=== PATIENT | female | born 1990 | race African-American/Black ===

== ENCOUNTER 2017-09-14 11:15 | Emergency (ER) | payer BC, OTHER ==
[~2017-09-14 11:15] MED LIST: FERR325T PO; MELO7.5T27 PO; PERI8.6T PO; [UNRECOGNIZED DRUG - OTHER]
--- NOTE | 2017-09-14 12:14 | PD ---
HPI Chief Complaint abdominal cramping Date Seen: Sep 14, 2017 Time Seen: 12:00 Travel History International Travel<30 Days: No Contact w/Intl Traveler<30Days: No Known Affected Area: No History of Present Illness HPI Pt is a 27 yo at 34 weeks and 4 days. EDC 10-22-[address] Graham, otherwise uncomplicated with exception of Fe deficiency anemia. Pt fell on right side from bed. Reporting abdominal cramping. No vaginal bleeding No leaking vaginal leaking. Reports active movements Weeks Gestation: 34 Para: 0 : 1 History Past Medical History Narrative Medical Iron deficiency anemia Obstetric History Obstetric History Primigravida Past Surgical History Surgical History: No Previous Surgery Family History Family History: Negative Social History Alcohol Use: No Tobacco Use: No Substance Abuse: No Allergies-Medications (Allergen,Severity, Reaction): Coded Allergies: amoxicillin (Unverified Allergy, Severe, HIVES, 05/03/17) penicillin G (Unverified Allergy, Severe, HIVES, 05/03/17) Home Meds Active Scripts Ferrous Sulfate (Ferrous Sulfate) 325 Mg Tab, 325 MG PO BID for Nutritional Supplement, #30 TAB 0 Refills Prov:Jocelin Ibarra MD R2 10/26/16 Sennosides-Docusate Sodium (Michelle-Colace) 8.6-50 Mg Tab, 2 TAB PO DAILY for Constipation, #60 TAB 0 Refills Prov:Jocelin Ibarra MD R2 10/26/16 Meloxicam (Meloxicam) 7.5 Mg Tab, 7.5 MG PO DAILY for Arthritis Pain, #30 TAB 0 Refills Prov:Jocelin Ibarra MD R2 10/26/16 Reported Medications [Trinessa Bcp] No Conflict Check 10/16/12 Review of Systems Except as stated in HPI: all other systems reviewed are Neg Physical Exam Narrative GENERAL: Well-nourished, well-developed patient. SKIN: Warm and dry. HEAD: Normocephalic and atraumatic. EYES: No scleral icterus. No injection or drainage. ENT: No nasal drainage noted. Mucous membranes pink. Airway patent. NECK: Supple, trachea midline. No JVD. CARDIOVASCULAR: Regular rate and rhythm without murmurs, gallops, or rubs. RESPIRATORY: Breath sounds equal bilaterally. No accessory muscle use. BREASTS: Bilateral exam showed no masses , no retractions, no nipple discharge. ABDOMEN/GI: Abdomen soft, non-tender, bowel sounds present, no rebound, no guarding No abdominal bruising Gravid to [34] weeks size Fundal Height: [34] GENITOURINARY: Uterine Contractions: [none] FHT's: Category: [1] Baseline: [120s] Reactive: [-] Variability: [moderate] Decels: [none] EXTREMITIES: No cyanosis or edema. BACK: Nontender without obvious deformity. No CVA tenderness. NEUROLOGICAL: Awake and alert. Motor and sensory grossly within normal limits. Five out of 5 muscle strength in all muscle groups. Normal speech. Data Data Vital Signs Reviewed: Yes [facility] Medical Record Reviewed: Yes Plan Abdominal cramping s/p fall. No vaginal bleeding, leaking and no contractions. Active movements Will allow prolonged NST Patient evaluated for 1 hour. Reports feeling better No vaginal bleeding, contractions or leaking. NST Cat1, no contractions noted on TOCO. Diagnosis Diagnosis: Primary Impression: Abdominal cramping affecting Additional Impression: Fall Disposition: 01 DISCHARGE HOME Condition: Good Freeman Nolan MD Sep 14, 2017 12:14
== END 2017-09-14 13:19 | disposition home or self-care (01) ==
LOC: HOBED 11:15
DX: O26.893 Other specified pregnancy related conditions, third trimester (principal); R10.9 Unspecified abdominal pain; Z3A.34 34 weeks gestation of pregnancy
CPT/HCPCS: 59025

== ENCOUNTER 2017-10-21 04:04 | Inpatient (IN) | payer OTHER ==
[2017-10-21] VITALS (9 sets, daily range): BP systolic 103–121; BP diastolic 55–74; PULSE 66–85; RESP 14–20; TEMP 97.7–98.7; O2SAT 98–100
[~2017-10-21] VITALS: Ht 149.9 cm; Wt 72.6 kg
[2017-10-21] MEDS ORDERED: LACTATED RINGER'S 1000 ML INJ 1,000 ML IV ONE ×2 (05:24→12:00)
--- NOTE | 2017-10-21 05:24 | PD ---
HPI Chief Complaint Contractions since 2 AM Date Seen: Oct 21, 2017 Time Seen: 05:20 Travel History International Travel<30 Days: No Contact w/Intl Traveler<30Days: No Known Affected Area: No History of Present Illness HPI 27-year-old at 39 weeks 6 days comes in complaining of contractions since 2 AM. Tractions was accompanied by a small amount of vaginal bleeding that has since resolved. She comes in his contractions have become more frequent and increased in intensity. Patient remembers having a group B strep collected but does not know the results and it is not in her exams. Patient had an ultrasound on Tuesday to ensure that it was a vertex presentation, baby was vertex at that time weighing 8 lbs. 1 oz. Weeks Gestation: 39 (39.6) Para: 0 : 1 History Past Medical History Medical History: Denies Significant Hx Past Surgical History Surgical History: No Previous Surgery Family History Family History: Negative Social History Alcohol Use: No Tobacco Use: No Substance Abuse: No Allergies-Medications (Allergen,Severity, Reaction): Coded Allergies: amoxicillin (Unverified Allergy, Severe, HIVES, 05/03/17) penicillin G (Unverified Allergy, Severe, HIVES, 05/03/17) Home Meds Active Scripts Ferrous Sulfate (Ferrous Sulfate) 325 Mg Tab, 325 MG PO BID for Nutritional Supplement, #30 TAB 0 Refills Prov:Jocelin Ibarra MD R2 10/26/16 Sennosides-Docusate Sodium (Michelle-Colace) 8.6-50 Mg Tab, 2 TAB PO DAILY for Constipation, #60 TAB 0 Refills Prov:Jocelin Ibarra MD R2 10/26/16 Meloxicam (Meloxicam) 7.5 Mg Tab, 7.5 MG PO DAILY for Arthritis Pain, #30 TAB 0 Refills Prov:Jocelin Ibarra MD R2 10/26/16 Reported Medications [Trinessa Bcp] No Conflict Check 10/16/12 Review of Systems Except as stated in HPI: all other systems reviewed are Neg Physical Exam Narrative GENERAL: Well-nourished, well-developed patient. SKIN: Warm and dry. HEAD: Normocephalic and atraumatic. EYES: No scleral icterus. No injection or drainage. ENT: No nasal drainage noted. Mucous membranes pink. Airway patent. NECK: Supple, trachea midline. No JVD. CARDIOVASCULAR: Regular rate and rhythm without murmurs, gallops, or rubs. RESPIRATORY: Breath sounds equal bilaterally. No accessory muscle use. ABDOMEN/GI: Abdomen soft, non-tender, bowel sounds present, no rebound, no guarding Gravid to [-] weeks size 41 Fundal Height: [-] GENITOURINARY: External Genitalia: intact and normal in appearance BUS glands: [-] Normal Cervix: [-] Mid position Dilatation: [-] 3-4 cm external os, 1 cm internal os with the head very high almost overriding the pubic bone Effacement: [-] 50 Station: [-] High Presentation: [-] Vertex Membranes: [intact or ruptured] intact Uterine Contractions: [-] Every 5 minutes FHT's: Category: [-] 1 Baseline: [-] 140 Reactive: [-] Moderate Variability: [-] Moderate Decels: [-] Absent EXTREMITIES: No cyanosis or edema. BACK: Nontender without obvious deformity. No CVA tenderness. NEUROLOGICAL: Awake and alert. Motor and sensory grossly within normal limits. Five out of 5 muscle strength in all muscle groups. Normal speech. Data Data Vital Signs Reviewed: Yes Orders Orders Ob (2e) Additional Admit Info (10/21/17 05:07) [facility] Medical Record Reviewed: Yes Plan 27-year-old who is at 39 weeks 6 days with obvious cephalic pelvic disproportion on exam with the vertex above the symphysis and pelvic contracture. I discussed this with Dr. neri and the patient and section was recommended Diagnosis Diagnosis: Primary Impression: Failure of descent in labor, delivered, current hospitalization Additional Impressions: CPD (cephalo-pelvic disproportion) 39 weeks gestation of Nadiya Wood MD Oct 21, 2017 05:24
[2017-10-21 05:35] LABS: AUTOMATED NEUTROPHIL # 4.4 TH/MM3 (1.8-7.7); BASOPHIL % 0.5 % (0.0-2.0); EOSINOPHIL # 0.1 TH/MM3 (0-0.4); EOSINOPHIL % 0.8 % (0.0-4.0); HEMOGLOBIN 11.1 GM/DL (11.6-15.3); LYMPH % 32.4 % (9.0-44.0); LYMPHOCYTE # 2.4 TH/MM3 (1.0-4.8); MEAN CORPUSCULAR HEMOGLOBIN 24.2 PG (27.0-34.0); MEAN CORPUSCULAR HGB CONC 32.7 % (32.0-36.0); MONO % 8.1 % (0.0-8.0); MONOCYTE # 0.6 TH/MM3 (0-0.9); NEUT % 58.2 % (16.0-70.0); PLATELET COUNT 171 TH/MM3 (150-450); RED CELL DISTRIBUTION WIDTH 14.4 % (11.6-17.2); WHITE BLOOD COUNT 7.5 TH/MM3 (4.0-11.0)
[2017-10-21] MEDS ORDERED: ACETAMINOPHEN 1000 MG/100 ML 100 ML IV ONE (05:50)
[2017-10-21] MEDS ORDERED: MORPHINE SULFATE PF 5 MG/10 ML VIAL ONE (05:50)
[2017-10-21 05:51] LABS: BILIRUBIN, URINE NEG (NEG); BLOOD, URINE MOD (NEG); GLUCOSE,URINE NEG (NEG); KETONE, URINE NEG (NEG); MUCUS URINE FEW /lpf (OCC); NITRITE,URINE NEG (NEG); SQUAMOUS EPITHELIAL CELL URINE 4 /hpf (0-5); URINE COLOR YELLOW (YELLW/STRAW); URINE LEUKOCYTE ESTERASE MOD (NEG)
[2017-10-21] MEDS: LACTATED RINGER'S 1000 ML INJ 1,000 ML IV SCH ×3 (05:54→23:04)
[2017-10-21] MEDS ORDERED: SIMETHICONE 80 MG CHEWABLE TAB PO PRN (06:00)
[2017-10-21] MEDS ORDERED: OXYTOCIN 30 UNITS-500ML PREMIX 500 ML IV ONE (06:00)
[2017-10-21] MEDS ORDERED: KETOROLAC TROMETHAMINE 30 MG/ML (IVP) VIAL IV PUSH PRN (06:00)
[2017-10-21] MEDS ORDERED: oxyCODONE/ACETAMINOPHEN 5 MG/325 MG TAB PO PRN ×2 (06:00)
[2017-10-21] MEDS ORDERED: KETOROLAC TROMETHAMINE 60 MG/2 ML (IM) VIAL IM PRN (06:00)
[2017-10-21] MEDS ORDERED: ONDANSETRON HCL 4 MG/2 ML VIAL IVP PRN (06:00)
[2017-10-21] MEDS ORDERED: ZOLPIDEM TARTRATE 5 MG TAB PO PRN (06:00)
[2017-10-21] MEDS ORDERED: MEASLES, MUMPS, RUBELLA VACCINE 0.5 ML VIAL SQ ONE (06:00)
[2017-10-21] MEDS ORDERED: CLINDAMYCIN PHOS 600 MG/4 ML VIAL ONE (06:03)
[2017-10-21] MEDS ORDERED: ceFAZolin 2 GM PREMIX 50 ML IV SCH (06:30)
[2017-10-21] MEDS ORDERED: CITRIC ACID-SODIUM CITRATE LIQ 30 ML UDC PO SCH (07:00)
--- NOTE | 2017-10-21 07:55 | MH ---
cc: JULIANNE NUNEZ DATE OF ADMISSION: 10/21/2017 TIME 05:50 a.m. ADMISSION DIAGNOSES Term . Early labor with cephalopelvic disproportion. HISTORY OF PRESENT ILLNESS The patient is 27-year-old black female para 0, LMP of 01/15/2017, EDC of 10/22/2017. The patient developed labor at 02:00 a.m. this morning and presented to the OB ED at 05:00 a.m. Her cervix showed early dilation with the vertex overriding the symphysis pubis. She has a narrow pelvic arch. She was seen by Dr. Nadiya Wood who concurs with the diagnosis of CPD. Of note, the patient has short stature with a height of 4 feet, 11 inches. She is now admitted for delivery by section. PAST MEDICAL HISTORY PREVIOUS SURGERY None. MEDICATIONS Vitamins. ALLERGIES AMOXICILLIN. TRANSFUSIONS None. SOCIAL HISTORY She is a [employer] therapist. She is . Alcohol, tobacco and drugs are none. FAMILY HISTORY Noncontributory. PHYSICAL EXAMINATION GENERAL: Exam reveals a well-nourished, well-developed black female. VITAL SIGNS: Stable. HEENT: Exam is normal. CHEST: Clear. HEART: Regular rate. ABDOMEN: Gravid. EFW of 3400 grams. PELVIC EXAM: Cervix is 1-2. Ballotable vertex, intact. EXTREMITIES: Normal. ASSESSMENT AND PLAN As above. She is now admitted for a primary . I have explained the procedure, the risks and benefits and complications and lack of safe alternatives. She would like to proceed. MD SEVERIANO Quigley/DOUGLAS /5:53 AM /7:29 AM
[2017-10-21] MEDS ORDERED: OXYTOCIN 30 UNITS-500ML PREMIX 500 ML ONE (08:06)
[2017-10-21] MEDS ORDERED: EPIDURAL-DIPHENHYDRAMINE HCL 50 MG CAP PO PRN (09:00)
[2017-10-21] MEDS ORDERED: EPIDURAL-NALOXONE HCL 0.4 MG/ML AMP IV PUSH PRN (09:00)
[2017-10-21] MEDS ORDERED: EPIDURAL-DIPHENHYDRAMINE HCL 50 MG/ML VIAL IV PUSH PRN (09:00)
[2017-10-21] MEDS ORDERED: EPIDURAL-DO NOT ADMINISTER ANTICOAGULANTS PRN (09:00)
[2017-10-21] MEDS ORDERED: EPIDURAL-NO SYSTEMIC NARCOTICS PRN (09:00)
[2017-10-21] MEDS ORDERED: OXYTOCIN 10 UNIT/ML AMP IV ONE (12:00)
[2017-10-21] MEDS ORDERED: DEXAMETHASONE SOD PHOS 4 MG/ML VIAL IV ONE (12:00)
[2017-10-21] MEDS ORDERED: PHENYLEPH/NS 1000 MCG/10 ML SYR IV ONE (12:00)
[2017-10-21] MEDS ORDERED: ONDANSETRON HCL 4 MG/2 ML VIAL IV ONE (12:00)
[2017-10-21] MEDS: ACETAMINOPHEN 1000 MG/100 ML VIAL IV SCH ×2 (14:00→22:08)
[2017-10-21] MEDS ORDERED: OXYTOCIN 30 UNITS-500ML PREMIX 500 ML IV PRN (18:15)
[2017-10-22] VITALS: BP 103/59; PULSE 68; RESP 18; TEMP 97.8
[2017-10-22 04:00] VITALS: BP 105/60; PULSE 94; RESP 18; TEMP 98
[2017-10-22] MEDS: IBUPROFEN 600 MG TAB PO PRN ×3 (04:53→19:24)
[2017-10-22 08:00] VITALS: BP 111/62; PULSE 85; RESP 18; TEMP 98.3; O2SAT 99
[2017-10-22 09:07] LABS: AUTOMATED NEUTROPHIL # 7.2 TH/MM3 (1.8-7.7); BASOPHIL % 0.3 % (0.0-2.0); EOSINOPHIL % 0.3 % (0.0-4.0); HEMATOCRIT 29.1 % (35.0-46.0); HEMOGLOBIN 9.4 GM/DL (11.6-15.3); LYMPH % 25.1 % (9.0-44.0); MEAN CELL VOLUME 74.8 FL (80.0-100.0); MEAN CORPUSCULAR HEMOGLOBIN 24.1 PG (27.0-34.0); MEAN CORPUSCULAR HGB CONC 32.2 % (32.0-36.0); MEAN PLATELET VOLUME 7.6 FL (7.0-11.0); MONO % 6.1 % (0.0-8.0); NEUT % 68.2 % (16.0-70.0); PLATELET COUNT 207 TH/MM3 (150-450); RED BLOOD COUNT 3.89 MIL/MM3 (4.00-5.30); RED CELL DISTRIBUTION WIDTH 14.9 % (11.6-17.2); WHITE BLOOD COUNT 10.6 TH/MM3 (4.0-11.0)
[2017-10-22 09:08] LABS: LYMPHOCYTE # 2.7 TH/MM3 (1.0-4.8); MONOCYTE # 0.6 TH/MM3 (0-0.9)
[2017-10-22 09:30] LABS: CALCIUM 9.2 MG/DL (8.5-10.1); CREATININE 0.63 MG/DL (0.50-1.00)
[2017-10-22] MEDS: DOCUSATE SODIUM 50 MG/SENNA 8.6 MG TAB PO PRN (11:33)
--- NOTE | 2017-10-22 19:33 | MP ---
cc: JULIANNE NUNEZ M.D. DATE OF SURGERY: 10/22/2017. PREOPERATIVE DIAGNOSIS: Term , active labor with cephalopelvic disproportion. POSTOPERATIVE DIAGNOSIS: Term , active labor with cephalopelvic disproportion. OPERATIVE PROCEDURE PERFORMED: Primary low section. SURGEON: Julianne Nunez MD. ANESTHESIA: Spinal. ESTIMATED BLOOD LOSS: About 700 cc. FLUIDS: 1.1 liter of crystalloid. OBJECTIVE FINDINGS: The patient has short stature with a height of 4 feet 11 inches and small clinical polimetry. She developed active labor at 02:00 a.m. this morning and was admitted with early dilation with the vertex overriding the symphysis pubis. Estimated weight is known to be around 8 pounds. In view of the obvious cephalopelvic disproportion, a section was recommended and the patient wished to proceed. She was then prepped and draped in the usual sterile fashion. After the induction of adequate spinal anesthesia, the abdomen was opened through a Pfannenstiel incision using a knife to cut down through skin to the fascia. The fascia was opened transversely and stripped the muscles. The rectus muscle was split in the midline and the peritoneum opened sharply without incident. The bladder flap was taken down sharply and retracted inferiorly with the Rodney blade. The lower uterine segment was incised transversely with a knife and extended with blunt dissection. There was clear fluid. The baby was in the LOT position. The vacuum extractor was applied to the occiput and used to gently lift the head through the uterine abdominal wound. The mouth was suctioned, the cord clamped and cut and the baby was passed to the awaiting team. A viable vigorous male, Apgars 9 and 9 and weight 8 pounds even. Cord blood was sent for typing and the uterine cavity was cleaned with laps. The uterus was exteriorized and closed in two layers of running suture, the first with a running locking stitch of Vicryl and the second with a running imbricating stitch of Vicryl. Posterior inspection of the uterus, tubes and ovaries was normal. The uterus was then placed back in the abdominal cavity. Irrigation was performed. No bleeding was evident and the bladder flap was closed with a running stitch of 3-0 Vicryl. All lap structures were removed. Counts were correct and the anterior peritoneum closed with a running stitch of 2-0 Vicryl. The fascia was closed with a running locking stitch of 0 Vicryl corner to midline and tied, subcu with 3-0 Vicryl and skin with running subcuticular 3-0 Monocryl. Dermabond applied. All counts were correct and the patient was awake and taken to the recovery room in good condition. MD SEVERIANO Quigley/VINNY /5:31 PM /7:19 PM MTDLuis Alberto
[2017-10-22 20:00] VITALS: BP 109/71; PULSE 88; RESP 16; TEMP 98.1; O2SAT 100
[2017-10-22] MEDS: LACTATED RINGER'S 1000 ML INJ 1,000 ML IV SCH (21:54)
[2017-10-23] MEDS: LACTATED RINGER'S 1000 ML INJ 1,000 ML IV SCH (01:11)
[2017-10-23] MEDS: IBUPROFEN 600 MG TAB PO PRN ×3 (02:58→20:44)
[2017-10-23 08:00] VITALS: BP_SYST 118; BP_DIAS 60; BP_DIAS 66; PULSE 70; RESP 16; TEMP 98.5
[2017-10-23] MEDS ORDERED: DIPHTH/TETANUS/ACEL PERTUSSIS (BOOSTER) 0.5 ML VIAL/PFS IM ONE (09:00)
[2017-10-23 19:28] VITALS: BP 106/71; PULSE 82; RESP 16; TEMP 98
[2017-10-23] MEDS: DOCUSATE SODIUM 50 MG/SENNA 8.6 MG TAB PO PRN (20:44)
[2017-10-24 08:00] VITALS: BP 106/59; PULSE 65; RESP 12; TEMP 98
[2017-10-24] MEDS ORDERED: OXYC1TAB63 PO (08:20)
--- NOTE | 2017-10-24 08:20 | HHI.DCPOC ---
Discharge Care Plan Report Symptoms to Your Doctor -Temperature above 100.5 degrees -Redness, of incision or excessive or foul smelling drainage -Unusual pain or calf pain -Increased vaginal bleeding -Painful or difficulty urinating -Feelings of extreme sadness or anxiety after 2 weeks Goals to Promote Your Health * To prevent worsening of your condition and complications * To maintain your health at the optimal level Directions to Meet Your Goals Take your medications as prescribed Follow your dietary instruction Follow activity as directed Ensure plenty of rest for recovery Drink fluids for hydration Keep your appointments as scheduled Take your immunizations and boosters as scheduled If your symptoms worsen call your PCP, if no PCP go to Urgent Care Center or Emergency Room Smoking is Dangerous to Your Health. Avoid second hand smoke Call the 24-hour crisis hotline for domestic abuse at Benny Graham MD Oct 24, 2017 08:20
--- NOTE | 2017-10-24 09:09 | MD ---
cc: JULIANNE NUNEZ ADMISSION DATE: 10/21/2017 DISCHARGE DATE: 10/24/2017 [place] Visit Search.Discharge Date ADMISSION DIAGNOSES Term , active labor. Cephalopelvic disproportion. DISCHARGE DIAGNOSES Term , active labor. Cephalopelvic disproportion. Delivered. HISTORY OF PRESENT ILLNESS The patient is 27-year-old black female, para 0, with an LMP of 01/15/2017, EDC of 10/22/2017. She has short stature with a height of 4' 11". She had a normal course. Ultrasound four days prior to admission suggested EFW of around 8 pounds. HOSPITAL COURSE She developed active labor on the morning of 10/21/2017 and presented to the [facility] for evaluation. She was seen by Dr. Wood, the hospitalist, who noted that she had early dilation with the vertex overriding the symphysis pubis consistent with cephalopelvic disproportion. Lab evaluation occurred and she was admitted for a primary on the morning of 10/21/2017, had delivery of a viable, vigorous male, Apgars 9 and 9, 8 pounds even. The baby is named Mani and she is . she did well with gradual advancement of diet and activity. She was discharged home in excellent condition on 10/24/2017. DISCHARGE INSTRUCTIONS She was advised NPV, light activity, no driving. She is to return to see me in one week. She is to call for abnormal pain, bleeding, temperature, signs of infection or depression. She was carefully instructed in wound and circumcision care. DISCHARGE MEDICATIONS She is to take her vitamins and iron pills daily, was given prescription for Percocet 5, 1-2 p.o. q.4 hours p.r.n. pain, #30. She also can take [id number] Motrin. FOLLOWUP She is to return to see me in one week. Julianne Nunez MD JAW/SSB /8:34 AM /8:59 AM
[2017-10-24] MEDS: IBUPROFEN 600 MG TAB PO PRN (10:26)
== END 2017-10-24 16:41 | disposition home or self-care (01) | DRG 766 ==
LOC: HOBED 04:04 → H2EB 05:08 → H1EA 08:18
PROVIDERS: ADMIT Obstetrics & Gynecology; ATTEND Obstetrics & Gynecology
PROC: 10D00Z1 Extraction of Products of Conception, Low, Open Approach (ICD-10-PCS; principal; 2017-10-21)
DX: O33.9 Maternal care for disproportion, unspecified (principal); O32.4XX0 Maternal care for high head at term, not applicable or unspecified; Z37.0 Single live birth; Z3A.39 39 weeks gestation of pregnancy
CPT/HCPCS: 80048; 80307; 81001; 85025; 86850; 86900; 86901; 90715; J0131; J1100; J1885; J2274; J2370; J2405; J2590; J7120

== ENCOUNTER 2018-01-16 22:43 | Emergency (ER) | payer OTHER ==
[~2018-01-16] VITALS: Ht 139.7 cm; Wt 62.0 kg
[~2018-01-16 22:43] MED LIST changes: -MELO7.5T27 PO; +OXYC1TAB63 PO; -[UNRECOGNIZED DRUG - OTHER]
[2018-01-16 22:53] VITALS: BP 109/53; PULSE 103; RESP 18; TEMP 99.8; O2SAT 98
[2018-01-17] MEDS ORDERED: cefTRIAXone INJ 1,000 MG in SODIUM CHLORIDE 0.9% INJ 100 ML IV ONE (01:45)
[2018-01-17] MEDS ORDERED: METOCLOPRAMIDE HCL 10 MG/2 ML VIAL IV PUSH ONE (01:45)
[2018-01-17] MEDS ORDERED: KETOROLAC TROMETHAMINE 30 MG/ML (IVP) VIAL IV PUSH ONE (01:45)
[2018-01-17] MEDS ORDERED: diphenhydrAMINE HCL 50 MG/ML VIAL IV PUSH ONE (01:45)
--- NOTE | 2018-01-17 01:48 | PD ---
HPI Chief Complaint: GI Complaint Time Seen by Provider: 01:33 Travel History International Travel<30 days: No Contact w/Intl Traveler<30days: No Traveled to known affect area: No History of Present Illness HPI 27-year-old black female 3 months and breast-feeding presents with a 1 day history of nausea, vomiting, diarrhea and upset stomach. The patient denies any fever chills. No cough, congestion. No back pain or flank pain. She denies any dysuria, frequency urgency. No alleviating factors. No exacerbating factors. Symptoms are moderate. PFSH Past Medical History Narrative Medical Anemia Anemia: Yes Cardiovascular Problems: Yes (HEART MURMUR) Diminished Hearing: No Immunizations Current: Yes Tetanus Vaccination: Unknown Influenza Vaccination: No ?: Not LMP: 01/01/2018 Past Surgical History Narrative Surgical Section: Yes Social History Alcohol Use: No Tobacco Use: No Substance Use: No Allergies-Medications (Allergen,Severity, Reaction): Coded Allergies: amoxicillin (Unverified Allergy, Severe, HIVES, 01/16/18) penicillin G (Unverified Allergy, Severe, HIVES, 01/16/18) Reported Meds & Prescriptions Reported Meds & Active Scripts Active Zofran Odt (Ondansetron Odt) 4 Mg Tab 4 Mg SL Q6HR PRN Oxycodone-Acetaminophen 5-325 (Oxycodone HCl/Acetaminophen) 5 Mg-325 Mg Tablet 2 Tab PO Q4H PRN Ferrous Sulfate 325 Mg Tab 325 Mg PO BID Michelle-Colace (Sennosides-Docusate Sodium) 8.6-50 Mg Tab 2 Tab PO DAILY Review of Systems General / Constitutional: No: Fever, Chills Eyes: No: Visual changes HENT: No: Headaches Cardiovascular: No: Chest Pain or Discomfort Respiratory: No: Shortness of Breath Gastrointestinal: Positive: Nausea, Vomiting, Diarrhea, Abdominal Pain Genitourinary: No: Urgency, Frequency, Dysuria, Discharge Musculoskeletal: No: Pain Skin: No Rash Neurologic: Positive: Headache, No: Weakness Psychiatric: No: Depression Endocrine: No: Polydipsia Hematologic/Lymphatic: No: Easy Bruising Physical Exam Narrative GENERAL: Well-developed, well-nourished in no acute distress. Nontoxic appearing. HEAD: Normocephalic, atraumatic. EYES: Pupils equal round and reactive. Extraocular motions intact. No scleral icterus. No injection or drainage. ENT: TMs clear without erythema. The external auditory canals clear. Nose: clear . Posterior pharynx is pink and moist. No tonsillar edema or exudate. Uvula midline. Airway patent. NECK: Trachea midline.Supple, nontender, moves head freely. No central bony tenderness or spasm. CARDIOVASCULAR: Regular rate and rhythm without murmurs, gallops, or rubs. RESPIRATORY: Clear to auscultation. Breath sounds equal bilaterally. No wheezes , rales, or rhonchi. GASTROINTESTINAL: Abdomen soft, non-tender, nondistended. No hepato-splenomegaly , or palpable masses. No guarding. EXTREMITIES: No clubbing, cyanosis, or edema. No joint tenderness, effusion, or edema noted. BACK: Nontender without deformity or crepitance. No flank tenderness. Data Data Last Documented VS Vital Signs Date Time Temp Pulse Resp B/P (MAP) Pulse Ox O2 Delivery O2 Flow Rate FiO2 01/17/18 02:24 87 16 105/58 (74) 98 Room Air 01/16/18 22:53 99.8 Orders Orders Complete Blood Count With Diff (01/17/18 01:35) Comprehensive Metabolic Panel (01/17/18 01:35) Lipase (01/17/18 01:35) Urinalysis - C+S If Indicated (01/17/18 01:35) Iv Access Insert/Monitor (01/17/18 01:35) Diphenhydramine Inj (Benadryl Inj) (01/17/18 01:45) Metoclopramide Inj (Reglan Inj) (01/17/18 01:45) Ketorolac Inj (Toradol Inj) (01/17/18 01:45) Ceftriaxone Inj (Rocephin Inj) (01/17/18 01:45) Sodium Chlor 0.9% 1000 Ml Inj (Ns 1000 M (01/17/18 02:00) Labs Laboratory Tests Test 01/17/18 01:50 01/17/18 02:25 Urine Color YELLOW Urine Turbidity CLOUDY Urine pH 5.0 Urine Specific [place] 1.027 Urine Protein TRACE mg/dL Urine Glucose (UA) NEG mg/dL Urine Ketones NEG mg/dL Urine Occult Blood TRACE Urine Nitrite NEG Urine Bilirubin NEG Urine Urobilinogen LESS THAN 2.0 MG/DL Urine Leukocyte Esterase MOD Urine RBC 2 /hpf Urine WBC 4 /hpf Urine Squamous Epithelial Cells 8 /hpf Urine Mucus MANY /lpf Urine Yeast (Budding) MANY Microscopic Urinalysis Comment CULT NOT INDICATED White Blood Count 6.6 TH/MM3 Red Blood Count 5.24 MIL/MM3 Hemoglobin 12.1 GM/DL Hematocrit 35.8 % Mean Corpuscular Volume 68.3 FL Mean Corpuscular Hemoglobin 23.1 PG Mean Corpuscular Hemoglobin Concent 33.8 % Red Cell Distribution Width 14.3 % Platelet Count 268 TH/MM3 Mean Platelet Volume 8.1 FL Neutrophils (%) (Auto) 80.0 % Lymphocytes (%) (Auto) 12.2 % Monocytes (%) (Auto) 5.8 % Eosinophils (%) (Auto) 1.0 % Basophils (%) (Auto) 1.0 % Neutrophils # (Auto) 5.3 TH/MM3 Lymphocytes # (Auto) 0.8 TH/MM3 Monocytes # (Auto) 0.4 TH/MM3 Eosinophils # (Auto) 0.1 TH/MM3 Basophils # (Auto) 0.1 TH/MM3 CBC Comment DIFF FINAL Differential Comment Blood Urea Nitrogen 13 MG/DL Creatinine 0.82 MG/DL Random Glucose 85 MG/DL Total Protein 8.7 GM/DL Albumin 3.9 GM/DL Calcium Level 9.1 MG/DL Alkaline Phosphatase 107 U/L Aspartate Amino Transf (AST/SGOT) 25 U/L Alanine Aminotransferase (ALT/SGPT) 27 U/L Total Bilirubin 0.3 MG/DL Sodium Level 141 MEQ/L Potassium Level 3.9 MEQ/L Chloride Level 107 MEQ/L Carbon Dioxide Level 28.1 MEQ/L Anion Gap 6 MEQ/L Estimat Glomerular Filtration Rate 100 ML/MIN Lipase 87 U/L MDM Medical Decision Making Medical Screen Exam Complete: Yes Emergency Medical Condition: Yes Medical Record Reviewed: Yes Interpretation(s) CBC & BMP Diagram 01/17/18 02:25 Total Protein 8.7 H, Albumin 3.9, Calcium Level 9.1, Alkaline Phosphatase 107, Aspartate Amino Transf (AST/SGOT) 25, Alanine Aminotransferase (ALT/SGPT) 27, Total Bilirubin 0.3 Differential Diagnosis MDM: High Differential diagnoses: Acute appendicitis, acute pancreatitis, viral gastroenteritis, colitis, UTI, pyelonephritis Narrative Course IV access is obtained. Patient is given Benadryl 50 million g IV, Reglan 10 mg IV, Toradol 30 mg IV, 1 L bolus of normal saline The patient is reexamined. She states that her headache, nausea, vomiting has resolved. She does report feeling somewhat dizzy. She is given a p.o. fluid challenge. This is vomiting, diarrhea Diagnosis Primary Impression: Vomiting Additional Impression: Diarrhea Patient Instructions: General Instructions Additional Instructions: Rest. Increase fluids. Zofran for nausea. Tylenol or Advil for any fever or discomfort. Recheck with a primary care doctor in the next 1-2 days. Return to the ER if any problems. Med/Other Pt SpecificInfo: Prescription(s) given Scripts Ondansetron Odt (Zofran Odt) 4 Mg Tab 4 MG SL Q6HR Y for Nausea/Vomiting, #6 TAB 0 Refills Prov: Maryann Pardo MD 01/17/18 Disposition: 01 DISCHARGE HOME Condition: Stable Andriy Lee January 17, 2018 01:48
[2018-01-17] MEDS ORDERED: SODIUM CHLOR 0.9% 1000 ML INJ 1,000 ML IV ONE (02:00)
[2018-01-17 02:06] LABS: BILIRUBIN, URINE NEG (NEG); BLOOD, URINE TRACE (NEG); GLUCOSE,URINE NEG (NEG); KETONE, URINE NEG (NEG); MUCUS URINE MANY /lpf (OCC); NITRITE,URINE NEG (NEG); SQUAMOUS EPITHELIAL CELL URINE 8 /hpf (0-5); URINE COLOR YELLOW (YELLW/STRAW); URINE LEUKOCYTE ESTERASE MOD (NEG)
[2018-01-17 02:24] VITALS: BP 105/58; PULSE 87; RESP 16; O2SAT 98
[2018-01-17 02:40] LABS: AUTOMATED NEUTROPHIL # 5.3 TH/MM3 (1.8-7.7); BASOPHIL # 0.1 TH/MM3 (0-0.2); EOSINOPHIL # 0.1 TH/MM3 (0-0.4); HEMATOCRIT 35.8 % (35.0-46.0); HEMOGLOBIN 12.1 GM/DL (11.6-15.3); LYMPH % 12.2 % (9.0-44.0); LYMPHOCYTE # 0.8 TH/MM3 (1.0-4.8); MEAN CELL VOLUME 68.3 FL (80.0-100.0); MEAN CORPUSCULAR HEMOGLOBIN 23.1 PG (27.0-34.0); MEAN CORPUSCULAR HGB CONC 33.8 % (32.0-36.0); MEAN PLATELET VOLUME 8.1 FL (7.0-11.0); MONO % 5.8 % (0.0-8.0); MONOCYTE # 0.4 TH/MM3 (0-0.9); PLATELET COUNT 268 TH/MM3 (150-450); RED BLOOD COUNT 5.24 MIL/MM3 (4.00-5.30); RED CELL DISTRIBUTION WIDTH 14.3 % (11.6-17.2); WHITE BLOOD COUNT 6.6 TH/MM3 (4.0-11.0)
[2018-01-17 03:25] LABS: ALKALINE PHOSPHATASE 107 U/L (45-117); ALT (GPT) 27 U/L (10-53); TOTAL BILIRUBIN ADULT 0.3 MG/DL (0.2-1.0); TOTAL PROTEIN 8.7 GM/DL (6.4-8.2)
[2018-01-17 03:27] LABS: ALBUMIN 3.9 GM/DL (3.4-5.0); AST (GOT) 25 U/L (15-37); BICARBONATE 28.1 MEQ/L (21.0-32.0); BLOOD UREA NITROGEN 13 MG/DL (7-18); CALCIUM 9.1 MG/DL (8.5-10.1); CHLORIDE 107 MEQ/L (98-107); CREATININE 0.82 MG/DL (0.50-1.00); GLOMERULAR FILTRATION RATE 100 ML/MIN (>89); GLUCOSE,RANDOM 85 MG/DL (74-106); SODIUM (NA) 141 MEQ/L (136-145)
[2018-01-17] MEDS ORDERED: ZOFR4TAB3 SL (04:01)
== END 2018-01-17 04:49 | disposition home or self-care (01) ==
LOC: NEPD 22:43
DX: R11.2 Nausea with vomiting, unspecified (principal); R19.7 Diarrhea, unspecified
CPT/HCPCS: 80053; 81001; 83690; 85025; 96361; 96374; 96375; 99284; J1200; J1885; J2765; J7030